=== PATIENT | male | born 1945 | race Caucasian/White ===

== ENCOUNTER 2017-01-13 14:50 | Emergency (ER) | payer MEDICARE, OTHER | END 2017-01-13 14:59 | disposition left against medical advice (07) | LOC: JP.ED 14:50 | DX: Z53.21 Procedure and treatment not carried out due to patient leaving prior to being seen by health care provider (principal) ==

== ENCOUNTER 2017-07-06 11:16 | Emergency (ER) | payer MEDICARE ==
[2017-07-06] MEDS ORDERED: HYDROmorphone 1 MG/ML Syringe IM ONE (12:25)
[2017-07-06] MEDS ORDERED: Cyclobenzaprine 10 MG Tab PO ONE (12:25)
--- NOTE | 2017-07-06 12:29 | EDM.PDOC ---
ED HPI GENERAL MEDICAL PROBLEM - General Chief Complaint: Back Pain or Injury Stated Complaint: BACK PAIN IN LOW BACK Time Seen by Provider: 07/06/17 12:21 Source of Information: Reports: Patient, RN Notes Reviewed History Limitations: Reports: No Limitations - History of Present Illness INITIAL COMMENTS - FREE TEXT/NARRATIVE: 72-year-old gentleman presents emergency department day complaint of low back pain, he does have a history of rheumatoid arthritis, they had difficulty last night with his low back pain, unable to sleep tonight does use diclofenac for chronic pain medication no loss of bowel or bladder no fevers Lower Back Pain Score (Numeric/FACES): 3 - Related Data Allergies Allergy/AdvReac Type Severity Reaction Status Date / Time No Known Allergies Allergy Verified 07/06/17 11:53 Home Meds: Home Meds Simvastatin [Zocor] 10 mg PO BEDTIME 05/09/13 [History] predniSONE [Prednisone] 10 mg PO DAILY 05/09/13 [History] sulfaSALAzine 500 mg PO BID 05/09/13 [History] Aspirin [Adult Low Dose Aspirin EC] 81 mg PO BEDTIME 02/03/16 [History] Folic Acid 0.16 mg PO DAILY 02/03/16 [History] Diclofenac Sodium [Voltaren] 75 mg PO BID 07/06/17 [History] Prolia 1 injection IM ASDIRECTED 07/06/17 [History] riTUXimab [Rituxan] 07/06/17 [History] Past Medical History HEENT History: Reports: Cataract Cardiovascular History: Reports: Afib, High Cholesterol, Other (See Below) Other Cardiovascular History: Cardioversion. Respiratory History: Reports: Interstitial Lung Disease Genitourinary History: Reports: Renal Calculus Musculoskeletal History: Reports: RA Immunologic History: Reports: Immunosuppression Oncologic (Cancer) History: Reports: Squamous Cell Carcinoma - Infectious Disease History Infectious Disease History: Reports: Chicken Pox, Measles - Past Surgical History HEENT Surgical History: Reports: Cataract Surgery, Tonsillectomy GI Surgical History: Reports: Cholecystectomy, Colonoscopy, EGD Musculoskeletal Surgical History: Reports: Other (See Below) Other Musculoskeletal Surgeries/Procedures:: 2 toes amputated 4 straightened skin graft ll leg Dermatological Surgical History: Reports: Skin Graft Social & Family History - Tobacco Use Smoking Status *Q: Never Smoker Second Hand Smoke Exposure: No - Caffeine Use Caffeine Use: Reports: Coffee - Alcohol Use Days Per Week of Alcohol Use: 0 - Recreational Drug Use Recreational Drug Use: No ED ROS GENERAL - Review of Systems Review Of Systems: See Below Constitutional: Reports: No Symptoms Respiratory: Reports: No Symptoms Cardiovascular: Reports: No Symptoms GI/Abdominal: Reports: No Symptoms : Reports: No Symptoms Musculoskeletal: Reports: Back Pain Skin: Reports: No Symptoms ED EXAM,LOWER BACK PAIN/INJURY - Physical Exam Exam: See Below Exam Limited By: No Limitations General Appearance: Alert, WD/WN, No Apparent Distress Respiratory/Chest: No Respiratory Distress Back Exam: Normal Inspection, Decreased Range of Motion, Muscle Spasm, Paraspinal Tenderness. No: CVA Tenderness (R), CVA Tenderness (L), Vertebral Tenderness Neurological: No: Straight Leg Raise (L), Straight Leg Raise (R) Course - Vital Signs Last Recorded V/S: Last Vital Signs Temp 97.3 F 07/06/17 15:23 Pulse 86 07/06/17 15:23 Resp 16 07/06/17 15:23 BP 154/91 H 07/06/17 15:23 Pulse Ox 92 L 07/06/17 15:23 - Orders/Labs/Meds Meds: Medications Discontinued Medications Generic Name Dose Route Start Last Admin Trade Name Edmundq PRN Reason Stop Dose Admin Cyclobenzaprine HCl 10 mg 07/06/17 12:25 07/06/17 12:46 Flexeril PO 07/06/17 12:26 10 mg ONETIME ONE Administration Hydromorphone HCl 1 mg 07/06/17 12:25 07/06/17 12:48 Dilaudid IM 07/06/17 12:26 1 mg ONETIME ONE Administration Ketorolac Tromethamine 60 mg 07/06/17 13:59 07/06/17 14:25 Toradol IM 07/06/17 14:00 60 mg ONETIME ONE Administration Departure - Departure Time of Disposition: 15:47 Disposition: Home, Self-Care 01 Condition: Fair Clinical Impression: Back pain Qualifiers: Back pain location: low back pain Chronicity: acute Back pain laterality: bilateral Sciatica presence: without sciatica Qualified Code(s): M54.5 - Low back pain - Discharge Information Referrals: Vincent Hughes MD [Primary Care Provider] - Forms: ED Department Discharge Additional Instructions: Continue to use her diclofenac for baseline pain control, use hydrocodone as needed for breakthrough pain, use Flexeril as needed for muscle relaxant, Please followup with your primary care provider in 3-5 days if not better, please call return to the emergency department with worsening of symptoms. - Assessment/Plan Plan: Assessment Acuity = acute Site and laterality = low back pain complicated patient with history of significant rheumatoid arthritis Etiology = probably secondary to twisting injury Manifestations = none Location of injury = Home Lab values = none Plan Good improvement combination Flexeril, Toradol, and Dilaudid, plan is discharge home prescription written for Flexeril 10 mg 1 tab by mouth 3 times a day when necessary total #30, also hydrocodone 5/325 one tablet by mouth 3 times a day total #10 recommend follow-up primary care 3-5 days if not better recommend continued physical therapy This note was dictated using [employer] voice recognition software please call with any questions on syntax or grammar.
[2017-07-06] MEDS ORDERED: Ketorolac 60 MG/2 ML SDV IM ONE (13:59)
[2017-07-06 15:23] VITALS: BP 154/91
== END 2017-07-06 16:20 | disposition home or self-care (01) ==
LOC: JP.ED 11:16
DX: M54.5 Low back pain (principal); E78.00 Pure hypercholesterolemia, unspecified; I48.91 Unspecified atrial fibrillation; Z79.82 Long term (current) use of aspirin; Z79.899 Other long term (current) drug therapy; Z87.442 Personal history of urinary calculi
CPT/HCPCS: 96372; 99283; A9270; J1170; J1885